=== PATIENT | female | born 1965 | race Caucasian/White ===

== ENCOUNTER 2018-08-28 05:54 | Day surgery (SDC) | payer OTHER ==
[~2018-08-28] VITALS: Ht 157.5 cm; Wt 81.8 kg
[2018-08-28 06:18] LABS: BASOPHILS 0.8 % (0-2); EOSINOPHILS 2.3 % (0-7); HEMATOCRIT 41.1 % (36.0-48.0); IMMATURE GRANULOCYTES 0.3 % (0-5); LYMPHOCYTES 29.1 % (15-50); MCHC 34.1 g/dL (31.0-37.0); MCV 91.1 fL (80.0-100.0); MEAN PLATELET VOLUME 9.8 fL (7.4-10.4); MONOCYTES 10.2 % (2-11); NEUTROPHILS 57.3 % (40-80); PLATELET COUNT 335 10x3/uL (130-400); RBC 4.51 10x6/uL (4.00-5.40); RDW 12.2 % (11.5-14.5); WBC 7.1 10x3/uL (4.8-10.8)
[2018-08-28 06:19] LABS: ANION GAP 13.9 mmol/L (8-16); CALCIUM 9.6 mg/dL (8.5-10.1); CARBON DIOXIDE 26.9 mmol/L (21.0-32.0); CREATININE - SERUM 1.7 mg/dL (0.6-1.3); POTASSIUM - SERUM 3.8 mmol/L (3.5-5.1)
[2018-08-28] MEDS ORDERED: LISINOPRIL20 MG PO (07:27)
[2018-08-28] MEDS ORDERED: HYDROCHLOROTH12.5 M1 PO (07:27)
[2018-08-28 07:31] VITALS: BP 122/75; Ht 157.5 cm; Wt 81.8 kg
--- NOTE | 2018-08-28 16:40 | OP ---
PATIENT NAME: DAYANA PARKS MEDICAL RECORD: [id number] :63 LOCATION:[facility] ADMISSION DATE: SURGEON: NADEGE SMITH MD DATE OF OPERATION: 08/28/2018 REFERRING PHYSICIAN: Dr. Jones of [place]. PREOPERATIVE DIAGNOSIS: Screening colonoscopy. OPERATION PERFORMED: Screening colonoscopy with finding of a benign-appearing polyp in the rectosigmoid junction and hot biopsy forceps polypectomy. SURGEON: Nadege Smith MD ANESTHESIA: TIVA per CASTING MACHINE OPERATOR. PREP: Fair. WITHDRAWAL TIME: 14 minutes. PREOPERATIVE NOTE: Ms. Parks is a very nice 53-year-old white female patient from [place]. She is a patient of Dr. Jones in [place] and she is asymptomatic and has Hemoccult negative stools and has never had a screening colonoscopy. She has a negative family history of colorectal cancer or polyps. She has had a standard prep and is brought now to the GI lab for procedure to be done under TIVA. With the patient in the lateral decubitus position and under TIVA monitored per CASTING MACHINE OPERATOR, digital rectal exam was performed, which was normal. There was normal anal sphincter tone. No masses, tenderness, bleeding, etc. The Olympus colonoscope was introduced and advanced to the cecum with no difficulty. The prep was excellent with the exception of the transverse colon where there was remaining liquid stool, which required some irrigation and suction. There were no lesions within the cecum or ascending colon or transverse colon or descending colon. No diverticula, no polyps, no bleeding, etc. At about the rectosigmoid junction between 15 and 20 cm from the anal verge, there was an approximately 0.5-cm benign-appearing possibly hyperplastic or adenomatous polyp. This was biopsied and destroyed with hot biopsy forceps technique. Tissue specimen sent for permanent section histology. The scope was then fully removed without finding any other lesions. The withdrawal time was 14 minutes. The patient was awakened and returned to the outpatient department in stable condition. My recommendation for this patient will be that she have a repeat colonoscopy in 5-7 years assuming benign changes only in the tissue specimens submitted today. She will return to see me on a p.r.n. basis. She will continue under Dr. Jones' care. TRANSINT:[id number] Voice Confirmation ID: [id number] DOCUMENT ID: [id number] OPERATIVE REPORT [id number] DAYANA PARKS NADEGE SMITH MD at 1640 CC: MAHAMED JONES MD [id number] DICTATION DATE: 08/28/1813 ARTIFICIAL MARBLE WORKER: 08/28/18 1138 [facility] 08/28/18 [id number] [place] [address]
== END 2018-08-28 10:19 | disposition home or self-care (01) ==
LOC: D.OPS 05:54
PROVIDERS: Anesthesiology; ATTEND Surgery
DX: Z12.11 Encounter for screening for malignant neoplasm of colon (principal); K63.5 Polyp of colon; Z01.812 Encounter for preprocedural laboratory examination